=== PATIENT | female | born 1965 | race Caucasian/White ===

== ENCOUNTER 2025-06-17 12:41 | Outpatient (CLI) | payer OTHER, SELFPAY ==
--- NOTE | 2025-06-17 14:26 | ECG_ITS ---
Test Date: 2025-06-17 14:44:19 Measurements Intervals [place] Rate: 73 P: 64 [place]: 138 QRS: 19 QRSD: 88 T: 58 QT: 391 QTc: 433 Interpretive Statements SINUS RHYTHM DELAYED PRECORDIAL R/S TRANSITION CONSIDER INFERIOR INFARCT, AGE INDETERMINATE BASELINE ARTIFACT- I, II, III, AVR, AVL, AVF ABNORMAL ECG No previous ECG available for comparison Electronically Signed On 06-17-2025 15:02:51 CDT by Clemente Austin D.O.
[2025-06-17 14:55] LABS: Hematocrit 47.9 % (37.0-47.0); Hemoglobin 16.1 g/dL (12.0-15.0); Mean Corpuscular HGB Conc 33.6 g/dl (32-36); Mean Corpuscular Hemoglobin 32.3 pg (26-34); Mean Corpuscular Volume 96.2 fl (80-100); Platelet Count Result 221 k/mm3 (150-375); Red Blood Count 4.98 M/mm3 (4.2-5.4); White Blood Count 11.6 K/mm3 (4.5-10.0)
[2025-06-17 15:05] LABS: Anion Gap 6 mmol/L (4-12); Blood Urea Nitrogen 12 mg/dL (7-17); Calcium 8.7 mg/dL (8.4-10.2); Carbon Dioxide 25 mmol/L (22-30); Chloride 96 mmol/L (98-107); Estimated Glomerular Filt Rate > 60; Glucose 105 mg/dL (65-110); Potassium 4.3 mmol/L (3.4-5.0); Sodium 127 mmol/L (137-145)
[2025-06-17 15:09] LABS: INR 1.0; Prothrombin Time 12.7 Seconds (11.1-14.7)
[2025-06-17 15:10] LABS: Partial Thromboplastin Time 29.1 Seconds (22.3-36.8)
[2025-06-17 15:36] LABS: Add Urine Microscopic? NO; Appearance Urine Clear (Clear); Glucose Urine UA 3+ mg/dL (Negative); Leukocyte Esterase Ur Negative LEU/UL (Negative); Nitrate Urine Negative (Negative); Specific Grav Ur 1.018 (1.001-1.035)
[2025-06-17 21:32] LABS: Hemoglobin A1C 5.7 % (<5.7)
== END 2025-06-17 12:42 | disposition home or self-care (01) ==
LOC: ANHSURGERY 12:46
PROVIDERS: PCP Family Medicine; Visit Provider Neurological Surgery
DX: Z01.818 Encounter for other preprocedural examination (principal); M50.20 Other cervical disc displacement, unspecified cervical region; E11.9 Type 2 diabetes mellitus without complications; R94.31 Abnormal electrocardiogram [ECG] [EKG]
CPT/HCPCS: 36415; 80048; 81003; 83036; 85027; 85610; 85730; 93005

== ENCOUNTER 2025-10-16 09:52 | Outpatient (CLI) | payer OTHER, SELFPAY ==
[2025-10-16 11:09] LABS: Hematocrit 50.4 % (37.0-47.0); Hemoglobin 16.6 g/dL (12.0-15.0); Mean Corpuscular HGB Conc 32.9 g/dl (32-36); Mean Corpuscular Hemoglobin 31.4 pg (26-34); Mean Corpuscular Volume 95.3 fl (80-100); Platelet Count Result 214 k/mm3 (150-375); Red Blood Count 5.29 M/mm3 (4.2-5.4); White Blood Count 10.4 K/mm3 (4.5-10.0)
[2025-10-16 11:13] LABS: Add Urine Microscopic? NO; Appearance Urine Clear (Clear); Glucose Urine UA 3+ mg/dL (Negative); Leukocyte Esterase Ur Negative LEU/UL (Negative); Nitrate Urine Negative (Negative); Specific Grav Ur 1.032 (1.001-1.035)
[2025-10-16 11:22] LABS: INR 0.9; Prothrombin Time 12.5 Seconds (11.1-14.7)
[2025-10-16 11:23] LABS: Hemoglobin A1C 6.3 % (<5.7); Partial Thromboplastin Time 28.3 Seconds (22.3-36.8)
[2025-10-16 11:30] LABS: Anion Gap 5 mmol/L (4-12); Blood Urea Nitrogen 18 mg/dL (7-17); Calcium 9.6 mg/dL (8.4-10.2); Carbon Dioxide 31 mmol/L (22-30); Chloride 103 mmol/L (98-107); Estimated Glomerular Filt Rate > 60; Glucose 118 mg/dL (65-110); Potassium 5.1 mmol/L (3.4-5.0); Sodium 139 mmol/L (137-145)
== END 2025-10-16 09:53 | disposition home or self-care (01) ==
LOC: ANHSURGERY 09:55
PROVIDERS: PCP Family Medicine; Visit Provider Neurological Surgery
DX: Z01.818 Encounter for other preprocedural examination (principal); M50.20 Other cervical disc displacement, unspecified cervical region
CPT/HCPCS: 36415; 80048; 81003; 83036; 85027; 85610; 85730